=== PATIENT | female | born 1960 | race Caucasian/White ===

== ENCOUNTER 2019-08-20 12:53 | Outpatient (REF) | payer MEDICAID, SELFPAY ==
--- NOTE | 2019-08-20 10:45 | PAPFT_PTH ---
PATIENT: Charla Pate LOC: [facility]#:[id number] AGE/SX: 59/F ROOM: RE08/20/[address]: Shanika Fuentes : 1960 BED: DIS: 08/20/2019 SPEC #: [id number] RECD: 08/21/19 13:00 STATUS: SHAWN REQ #: [id number] BOB: [birth year]19 10:[address]: Shanika Fuentes DEPT: [facility] Cytology RECD BY: Bia Aparicio ENTERED: 08/21/19 13:00 SP TYPE: PAPFT OTHR DR: Adelfo Anand Tissues: 1 - CX/ENDOCX FOR PAP SMEARS Procedures: PAP THIN PREP/[facility] Screening Comments: [id number] (UNSATISFACTORY FOR EVALUATION)
[2019-08-20 22:01] LABS: Calculated LDL 89 mg/dL; Cholesterol 218 mg/dL (50-200); Glucose 89 mg/dL (70-100); HDL Cholesterol 118 mg/dL (40-60); Triglyceride 57 mg/dL (30-150)
[2019-08-22 12:04] LABS: Hepatitis C Ab w Rflx HCV PCR Negative (NEGAT)
== END 2019-08-20 13:13 ==
LOC: NCHCN 12:53
PROVIDERS: PCP Internal Medicine; Visit Provider Nurse Practitioner Family
DX: Z13.1 Encounter for screening for diabetes mellitus (principal); Z13.220 Encounter for screening for lipoid disorders; Z11.59 Encounter for screening for other viral diseases; Z00.00 Encounter for general adult medical examination without abnormal findings; Z13.29 Encounter for screening for other suspected endocrine disorder; Z12.4 Encounter for screening for malignant neoplasm of cervix; Z11.51 Encounter for screening for human papillomavirus (HPV)
CPT/HCPCS: 80061; 82947; 86803; 88142; 84443; 87624

== ENCOUNTER 2019-11-01 12:02 | Outpatient (REF) | payer MEDICAID, SELFPAY ==
--- NOTE | 2019-11-01 10:30 | PAPFT_PTH ---
PATIENT: Charla Pate LOC: [facility]#:[id number] AGE/SX: 59/F ROOM: RE11/01/[address]: Shanika Fuentes : 1960 BED: DIS: 11/01/2019 SPEC #: [id number] RECD: 11/04/19 12:46 STATUS: SHAWN REQ #: [id number] BOB: [birth year]19 10:[address]: Shanika Fuentes DEPT: [facility] Cytology RECD BY: Bia Aparicio ENTERED: 11/04/19 12:46 SP TYPE: PAPFT OTHR DR: Adelfo Anand Tissues: 1 - CX/ENDOCX FOR PAP SMEARS Procedures: PAP THIN PREP/[facility] Screening HPV DNA PROBE Comments: [id number]
== END 2019-11-01 12:22 ==
LOC: NCHCN 12:02
PROVIDERS: PCP Internal Medicine; Visit Provider Nurse Practitioner Family
DX: Z12.4 Encounter for screening for malignant neoplasm of cervix (principal)
CPT/HCPCS: 88142; 87624

== ENCOUNTER 2022-12-05 11:28 | Outpatient (REF) | payer MEDICAID, SELFPAY ==
[2022-12-05 16:11] LABS: Calculated LDL 93 mg/dL (<100); Cholesterol 239 mg/dL (<200); Glucose 96 mg/dL (74-106); HDL Cholesterol 140 mg/dL (40-60); Triglyceride 34 mg/dL (<150)
== END 2022-12-05 11:29 | disposition home or self-care (01) ==
LOC: NCHCN 11:28
PROVIDERS: PCP Internal Medicine; Visit Provider Nurse Practitioner Family
DX: Z13.1 Encounter for screening for diabetes mellitus (principal); Z13.220 Encounter for screening for lipoid disorders; Z00.00 Encounter for general adult medical examination without abnormal findings
CPT/HCPCS: 80061; 82947

== ENCOUNTER 2024-12-09 13:48 | Outpatient (REF) | payer MEDICAID, SELFPAY ==
--- NOTE | 2024-12-09 14:00 | PAPFT_PTH ---
PATIENT: Charla Pate LOC: [facility]#:[id number] AGE/SX: 64/F ROOM: RE12/09/[address]: Shanika Fuentes : 1960 BED: DIS: 12/09/2024 SPEC #: [id number] RECD: 12/10/24 13:05 STATUS: SHAWN REBerta #: [id number] BOB: [birth year]24 14:[address]: Shanika Fuentes DEPT: [facility] Cytology RECD BY: Bia Aparicio ENTERED: 12/10/24 13:05 SP TYPE: PAPFT OTHR DR: Adelfo Anand Tissues: 1 - CX/ENDOCX FOR PAP SMEARS Procedures: PAP THIN PREP/[facility] Screening HPV DNA PROBE Comments: [id number] (HPV 16 & 18/45) (CHLAMYDIA/GC)
[2024-12-11 12:53] LABS: Chlamydia Result Negative (Negative); GC Result Negative (Negative)
== END 2024-12-09 13:49 | disposition home or self-care (01) ==
LOC: NCHCN 13:48
PROVIDERS: PCP Internal Medicine; Visit Provider Nurse Practitioner Family
DX: Z11.51 Encounter for screening for human papillomavirus (HPV) (principal); Z01.419 Encounter for gynecological examination (general) (routine) without abnormal findings; Z11.3 Encounter for screening for infections with a predominantly sexual mode of transmission
CPT/HCPCS: 87491; 87591; 88142; 87624